=== PATIENT | male | born 1985 | race African-American/Black ===

== ENCOUNTER 2017-10-11 17:03 | Emergency (ER) | payer OTHER ==
[~2017-10-11] VITALS: Ht 182.9 cm; Wt 78.0 kg
[2017-10-11 17:29] VITALS: Ht 182.9 cm; Wt 78.0 kg
[2017-10-11 21:35] VITALS: BP 123/67
== END 2017-10-11 21:35 | disposition home or self-care (01) ==
LOC: ED 17:03
DX: B35.4 Tinea corporis (principal)

== ENCOUNTER 2017-10-18 08:22 | Emergency (ER) | payer OTHER ==
[~2017-10-18] VITALS: Ht 180.3 cm; Wt 76.4 kg
[2017-10-18 08:36] VITALS: BP 125/76; Ht 180.3 cm; Wt 76.4 kg
== END 2017-10-18 11:03 | disposition home or self-care (01) ==
LOC: ED 08:22
DX: B35.4 Tinea corporis (principal)